=== PATIENT | female | born 1985 | race Two or more races ===

== ENCOUNTER 2021-12-15 10:00 | Emergency (ER) | payer OTHER ==
[~2021-12-15] VITALS: Ht 165.1 cm; Wt 100.0 kg
[2021-12-15 10:51] VITALS: BP 128/76
[2021-12-15] MEDS ORDERED: IBUP-2030 MT (13:22)
[2021-12-15] MEDS ORDERED: CYCL25PO15 MT (13:22)
[2021-12-15] MEDS ORDERED: IBUPROFEN 800MG TABLET PO ONE (13:30)
[2021-12-15] MEDS ORDERED: CYCLOBENZAPRINE 10MG TABLET PO ONE (13:30)
== END 2021-12-15 13:35 | disposition home or self-care (01) ==
LOC: ER 10:00
DX: S33.5XXA Sprain of ligaments of lumbar spine, initial encounter (principal); Z86.59 Personal history of other mental and behavioral disorders; W01.0XXA Fall on same level from slipping, tripping and stumbling without subsequent striking against object, initial encounter; Y93.01 Activity, walking, marching and hiking; Y92.89 Other specified places as the place of occurrence of the external cause; Y99.8 Other external cause status
CPT/HCPCS: 81025; 99282